=== PATIENT | male | born 1965 | race Asian ===

== ENCOUNTER 2019-10-26 22:54 | Emergency (ER) | payer SELFPAY ==
[~2019-10-26] VITALS: Ht 175.3 cm; Wt 79.4 kg
--- NOTE | 2019-10-26 23:10 | NUR ---
PALAK FROM HOME TO ER BED 10. AAOX4. NO RESP DISTRESS NOTED. AMBULATORY. CAME IN BECAUSE HE WAS WORRIED THAT HIS BP WAS TOO HIGH AND HR RATE IS ELEVATED. PT IS PRESENTED ANXIOUS. PER PT, HE FEEL PRESSURE BETWEEN HIS EARS AND HEAD, NUMBENESS ON HIS SHINS AND DIZZYNESS. AT TIME OF ASSESSMENT, PT NOTED W/ BP OF 152/86, HR 110. 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 WHICH USUALLY HELPS BUT NOTED THIS TIME. WAS AT BEDSIDE FOR EVAL. AWAITING ORDERS
[2019-10-26] MEDS ORDERED: LORAZEPAM INJ 2 MG/ML VIAL IM ONE (23:30)
[2019-10-26] MEDS ORDERED: IBUPROFEN 400 MG TABLET PO ONE (23:30)
[2019-10-26] MEDS ORDERED: LORAZEPAM INJ 2 MG/ML VIAL ONE (23:43)
[2019-10-26] MEDS ORDERED: IBUPROFEN 400 MG TABLET ONE (23:44)
--- NOTE | 2019-10-27 01:52 | NUR ---
PT STILL NOTED HAVING HR IN THE 110-117. MD MADE AWARE. VERBAL ORDER RECEIVED TO GIVE 1L NS VIA IV BOLUS X 1 . NOTED AND CARRIED OUT. IV LINE OBTAQINED ON THE R AC 18G.
[2019-10-27] MEDS ORDERED: IV NS 0.9% 1,000 ML BAG IV ONE (02:00)
--- NOTE | 2019-10-27 02:56 | NUR ---
[employer] AT BEDSIDE FOR BLOOD DRAW
[2019-10-27 03:06] LABS: BASOPHILS % (AUTO) 0.4 % (0.0-2.0); EOSINOPHILS % (AUTO) 0.8 % (0.0-6.0); HEMATOCRIT 43 % (39-51); HEMOGLOBIN 14.6 g/dL (13.5-17.5); LYMPHOCYTES # (AUTO) 0.5 /CMM (0.8-4.8); LYMPHOCYTES % (AUTO) 4.9 % (20.0-44.0); MEAN CORPUSCULAR HGB CONC 34 g/dl (31.0-36.0); MEAN CORPUSCULAR VOLUME 82 fL (80-96); MONOCYTES # (AUTO) 0.6 /CMM (0.1-1.30); MONOCYTES % (AUTO) 6.1 % (2.0-12.0); NEUTROPHILS # (AUTO) 9.3 /CMM (1.8-8.9); NEUTROPHILS % (AUTO) 87.8 % (43.0-81.0); PLATELET COUNT (AUTO) 231 /CMM (150-450); RED BLOOD CELL COUNT(AUTO) 5.19 MIL/uL (4.5-6.0); WHITE BLOOD COUNT (AUTO) 10.6 K/uL (4.3-11.0)
[2019-10-27 03:09] LABS: CALCIUM, SERUM 8.3 mg/dL (8.5-10.1); CREATININE 1.1 mg/dL (0.6-1.3); POTASSIUM 3.5 mmol/L (3.5-5.1)
--- NOTE | 2019-10-27 03:55 | NUR ---
Patient discharged to home in stable condition. Written and verbal after care instructions given. Patient verbalizes understanding of instruction.IV removed. Catheter intact and site benign. Pressure and 4x4 applied to site. No bleeding noted. Pt ambulatory with a steady gait
[2019-10-27 07:49] VITALS: BP 118/68
== END 2019-10-27 07:49 | disposition home or self-care (01) ==
LOC: ER 22:57
DX: F41.0 Panic disorder [episodic paroxysmal anxiety] (principal); I10 Essential (primary) hypertension
CPT/HCPCS: 36415; 70450; 80048; 85025; 96372; 99284; J2060; J7030

== ENCOUNTER 2020-02-14 04:06 | Emergency (ER) | payer MEDICAID ==
[~2020-02-14] VITALS: Ht 185.4 cm; Wt 81.6 kg
--- NOTE | 2020-02-14 04:37 | NUR ---
BIBS FOR C/O "WOKE UP WITH SOB, CHILLS, GERNERALIZED BODY PAIN, H/A AND DIARRHEA". REC'D NORVASC 5MG & XANAX 0.5MG 2HRS PROJECT/PRODUCTION MANAGER IMAGING TO ER BED 6 MD AT BEDSIDE FOR EVAL
[2020-02-14] MEDS ORDERED: ASPIRIN 81 MG TAB.CHEW ONE (04:53)
[2020-02-14] MEDS ORDERED: ONDANSETRON HCL/PF 4 MG/2 ML VIAL ONE (04:53)
[2020-02-14] MEDS ORDERED: LORAZEPAM INJ 2 MG/ML VIAL ONE (04:53)
[2020-02-14] MEDS ORDERED: ONDANSETRON HCL/PF 4 MG/2 ML VIAL IVP ONE (05:00)
[2020-02-14] MEDS ORDERED: LORAZEPAM INJ 2 MG/ML VIAL IV ONE (05:00)
[2020-02-14] MEDS ORDERED: IV NS 0.9% 1,000 ML BAG IV ONE (05:00)
[2020-02-14] MEDS ORDERED: ASPIRIN 81 MG TAB.CHEW PO ONE (05:00)
[2020-02-14 05:07] LABS: BASOPHILS % (AUTO) 0.5 % (0.0-2.0); EOSINOPHILS % (AUTO) 1.1 % (0.0-6.0); HEMATOCRIT 44 % (39-51); HEMOGLOBIN 15.2 g/dL (13.5-17.5); LYMPHOCYTES # (AUTO) 2.1 /CMM (0.8-4.8); LYMPHOCYTES % (AUTO) 22.6 % (20.0-44.0); MEAN CORPUSCULAR HGB CONC 35 g/dl (31.0-36.0); MEAN CORPUSCULAR VOLUME 83 fL (80-96); MONOCYTES % (AUTO) 10.5 % (2.0-12.0); NEUTROPHILS # (AUTO) 6.1 /CMM (1.8-8.9); NEUTROPHILS % (AUTO) 65.3 % (43.0-81.0); PLATELET COUNT (AUTO) 273 /CMM (150-450); WHITE BLOOD COUNT (AUTO) 9.3 K/uL (4.3-11.0)
[2020-02-14 05:15] LABS: CALCIUM, SERUM 9.3 mg/dL (8.5-10.1); CARBON DIOXIDE 25 mmol/L (21-32); CHLORIDE 101 mmol/L (98-107); CREATININE 1.1 mg/dL (0.6-1.3); GLUCOSE 132 mg/dL (74-106); SODIUM SERUM 140 mmol/L (136-145); UREA NITROGEN, BLOOD 14 mg/dL (7-18)
[2020-02-14 05:21] LABS: D-DIMER 0.22 mg/L(FEU (0.17-0.50)
[2020-02-14 05:28] LABS: ALANINE AMINOTRANSFERASE 26 U/L (12-78); ALBUMIN 4.2 g/dL (3.4-5.0); ALKALINE PHOSPHATASE 88 U/L (46-116); ASPARTATE AMINOTRANSFERASE 16 U/L (15-37); B-TYPE NATRIURETIC PEPTIDE 33 PG/ML (0-125); BILIRUBIN,DIRECT 0.1 mg/dL (0.0-0.2); BILIRUBIN,TOTAL 0.5 mg/dL (0.2-1.0); TOTAL PROTEIN, SERUM 7.3 g/dL (6.4-8.2)
[2020-02-14] MEDS ORDERED: POTASSIUM CHLORIDE 20 MEQ TAB.PRT.SR PO ONE ×2 (05:51→06:00)
--- NOTE | 2020-02-14 07:09 | NUR ---
REPORT TO KAEL CELIS FOR DEMI
--- NOTE | 2020-02-14 08:30 | NUR ---
PATIENT A/OX4, BREATHING EVEN AND UNLABORED, DENIES PAIN OR DISCOMFORT. NEEDS ATTENDED. KEPT COMFORTABLE.
--- NOTE | 2020-02-14 09:17 | NUR ---
Patient discharged to home in stable condition. Written and verbal after care instructions given. Patient verbalizes understanding of instruction. IV removed. Catheter intact and site benign. Pressure and 4x4 applied to site. No bleeding noted.
[2020-02-14 09:18] VITALS: BP 150/58
== END 2020-02-14 09:18 | disposition home or self-care (01) ==
LOC: ER 04:08
DX: A08.4 Viral intestinal infection, unspecified (principal); F41.9 Anxiety disorder, unspecified; Z20.828 Contact with and (suspected) exposure to other viral communicable diseases; R73.03 Prediabetes; R07.89 Other chest pain
CPT/HCPCS: 36415; 71045; 80048; 80076; 83690; 83880; 84484 ×2; 85025; 85378; 85730; 87635; 87804; 93005; 96361; 96374; 96375; 99285; J2060; J2405; J7030